=== PATIENT | female | born 2000 | race Caucasian/White ===

== ENCOUNTER 2018-05-29 01:33 | Emergency (ER) | payer OTHER ==
[~2018-05-29] VITALS: Ht 157.5 cm; Wt 70.3 kg
[2018-05-29 01:36] VITALS: BP 123/73
--- NOTE | 2018-05-29 01:42 | NUR ---
PT TAKEN TO BED 1
[2018-05-29] MEDS ORDERED: KETOROLAC 60 MG/2 ML VIAL IM ONE ×2 (01:45→02:02)
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
--- NOTE | 2018-05-29 02:07 | NUR ---
[employer] CALLED, INFORMED BY [employer] GRINDER #[id number] THAT WE WOULD RECIEVE A CALL BACK. CALL BACK NUMBER GIVEN TO [employer].
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
[2018-05-29 03:00] VITALS: BP 118/74
== END 2018-05-29 03:00 | disposition home or self-care (01) ==
LOC: MED 01:33
DX: H72.92 Unspecified perforation of tympanic membrane, left ear (principal)
CPT/HCPCS: 96372; 99283; J1885